=== PATIENT | male | born 1970 | race Caucasian/White ===

== ENCOUNTER 2018-08-06 08:07 | Outpatient (REF) | payer BC, SELFPAY ==
[2018-08-06 13:08] LABS: Cholesterol 230 mg/dL (50-200); HDL Cholesterol 36 mg/dL (40-60); LDL CHOLESTEROL 151 mg/dL (<100); Triglyceride 216 mg/dL (30-150)
== END 2018-08-06 08:27 ==
LOC: NCHCN 08:07
PROVIDERS: PCP Nurse Practitioner Family; Visit Provider Nurse Practitioner Family
DX: E78.5 Hyperlipidemia, unspecified (principal)
CPT/HCPCS: 80061; 83721

== ENCOUNTER 2018-09-22 10:57 | Emergency (ER) | payer OTHER, BC, SELFPAY ==
[2018-09-22 11:01] VITALS: BP 184/96; PULSE 62; RESP 20; TEMP 36.8; O2SAT 98
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
[2018-09-22] MEDS: Bacitracin 30 GM TUBE TP (11:12)
[2018-09-22] MEDS: oxyCODONE 5 mg/Acetaminophen 325 mg TAB 1 TAB PO (11:13)
== END 2018-09-22 12:04 | disposition home or self-care (01) ==
PROVIDERS: Emergency Provider Student in an Organized Health Care Education/Training Program; PCP Nurse Practitioner Family
DX: T21.11XA Burn of first degree of chest wall, initial encounter (principal); T20.17XA Burn of first degree of neck, initial encounter; W18.49XA Other slipping, tripping and stumbling without falling, initial encounter; X12.XXXA Contact with other hot fluids, initial encounter; X13.1XXA Other contact with steam and other hot vapors, initial encounter; I10 Essential (primary) hypertension
CPT/HCPCS: 16000

== ENCOUNTER 2018-09-30 14:13 | Outpatient (CLI) | payer BC, SELFPAY ==
--- NOTE | 2018-09-30 14:30 | DI.RAD_ITS ---
SYMPTOM/DIAGNOSIS: LT KNEE PAIN LEFT KNEE: Three views. No priors. The articular surfaces are well maintained. The bones are intact and normally mineralized. The soft tissues are unremarkable. IMPRESSION: Unremarkable left knee.
== END 2018-09-30 14:33 ==
PROVIDERS: PCP Nurse Practitioner Family; Visit Provider Student in an Organized Health Care Education/Training Program
DX: M25.562 Pain in left knee (principal)
CPT/HCPCS: 73562

== ENCOUNTER 2021-10-21 15:25 | Emergency (ER) | payer MEDICAID, SELFPAY ==
[2021-10-21 15:29] VITALS: BP 172/93; PULSE 80; RESP 18; TEMP 37.6; O2SAT 95
--- NOTE | 2021-10-21 15:45 | RT.EKG_ITS ---
APPROVED REPORT Exam: Resting ECG Reason for Exam: chest pain Patient Location: E HR:72 bpm ECG Measurements Heart Rate 72 AXIS RI 170 P 0 QRSd 89 QRS 12 QT 361 T 19 QTc 397 Conclusion Sinus rhythm...normal P axis, V-rate 60- 99
--- NOTE | 2021-10-21 15:45 | DI.RAD_ITS ---
Exam(s) XR CHEST 2V PA LATERAL EXAM: XR CHEST 2V PA LATERAL CLINICAL HISTORY: chest pain. TECHNIQUE: 2D digital imaging was performed. COMPARISON: CR PORTABLE CHEST ONE VIEW from 11/10/2014 FINDINGS: 2 views: Heart size is normal. The mediastinum is not widened. Right lung is clear. There is platelike atelectasis in the lingular segment of the left lung. No pl eural effusions. No pneumothorax. No pulmonary edema. IMPRESSION: There is subsegmental platelike atelectasis in the lingular segment of the left lung. No other pulmo nary findings. No pleural effusions. DATA REPOSITORY: RADIATION DOSE DELIVERED:
--- NOTE | 2021-10-21 15:56 | W.ED.GENAD ---
Discharge Plan Disposition Patient Disposition: HOME Condition: Stable Discharge Details Clinical Impression: Dental caries, Elevated TSH Primary Care Provider: Jennifer Quiroz ED Provider: Patricia Dorman Home Meds and New Rx's Prescriptions: New penicillin V potassium 500 mg tablet 500 mg PO QID 7 Days Qty: 28 0RF No Action ibuprofen 800 MG tablet 800 mg PO PRN PRN0RF naproxen sodium [Aleve] 220 MG capsule 220 mg PO BID 0RF nitroglycerin [Nitrostat] 0.4 MG tablet, sublingual 0.4 mg Sublingual Q5 MIN PRN X3 PRNQty: 30 0RF Discharge Instructions Instructions: Dental Caries (ED), Hypothyroidism (ED) Additional Instructions: Your thyroid stimulating hormone was slightly elevated today. This may indicate that you have hypothyroidism. Please discuss this with your primary care provider. Please take the antibiotic as directed. Take it with yogurt or probiotics. Please see a dentist. You are placed on a care management list, they should be contacting you to help you establish a PCP. Follow up with primary care provider in 3-5 days. Return to ED sooner if any worsening or concerns. Increase oral fluids. Please take Tylenol or Ibuprofen with food every 4-6 hours as needed for pain and swelling. Referrals: Jennifer Quiroz [Primary Care Provider] - 5 days Discharge Data Discharge Date/Time-TO BE ENTERED AT DEPARTURE: 10/21/21 17:33 Medical Decision Making <DANIELLA Dee - Last Filed: 10/24/21 09:09> Patient with the complaint and no PCP or history Given his complaint of intermittent chest discomfort, splinting, chills I did order blood work, chest x-ray, EKG, and diagnostic lab work If all the tests are negative I would consider discharging patient with a prescription for penicillin and a dental follow-up Elvin transferred to Patricia Dorman, nurse practitioner pending diagnostic blood work and disposition Medical Records Medical records reviewed: Yes I reviewed the patient's medical records. Lab Data Lab results reviewed: Yes I reviewed the patient's lab results. <Patricia Dorman - Last Filed: 10/21/21 17:24> Patient with the complaint and no PCP or history Given his complaint of intermittent chest discomfort, splinting, chills I did order blood work, chest x-ray, EKG, and diagnostic lab work If all the tests are negative I would consider discharging patient with a prescription for penicillin and a dental follow-up Elvin transferred to Patricia Dorman nurse practitioner pending diagnostic blood work and disposition 1615: SJ: Care assumed from provider (DANIELLA Dee Please see their initial HPI, PE, and documentation. Discussed patient details and case and pending workup and disposition. Patient is hemodynamically stable, and alert and oriented. At the time of signout labs imaging pending. 51-year-old male presents to the ER with chief complaint of mouth pain. He reports that recently he has been having some chills, numbness in his fingers and intermittent chest pains. He does not have a primary care provider. He reports that he used to be on sertraline but has not taken any medications for years. He is a daily smoker. He does endorse alcohol. CBC shows no leukocytosis, initial troponin within normal limits. EKG shows normal sinus rhythm. CMP shows no acute abnormality glucose is 119, TSH is elevated at 4.08 Free T4 is normal at 0.83. Discussed labs and follow-up care with patient patient was placed on a care management list as he reports he needs a new PCP. Patient was given penicillin 500 mg 4 times daily and was given dental resources. This text was generated using Ahandyhandation system, please disregard any oddities of phrase or misspellings. HPI <DANIELLA Dee - Last Filed: 10/24/21 09:09> General Date/Time Provider Initiated Documentation: 10/21/21 15:26. HPI Narrative: This 51-year-old gentleman presents for report of vague complaints including increased sweating, intermittent chills, intermittent chest pain over the course of the past several days. He states he feels out of it . He also reports paresthesias to his arms and legs. He states that they are not constant. He denies any current chest pain or shortness of breath. He states he had some chest pain earlier today approximately 8:00. He also has dental pain which is ongoing. He denies acute exacerbation at this time. He has not taken any medications today. He states he is having intermittent chills. He denies any urinary symptoms. He denies polyuria, polyphagia, polydipsia. He has had some increased fatigue. He denies any IV drug abuse. He uses marijuana and he drinks alcohol, he typically binge drinks when he does drink and denies any history of withdrawal. He denies 3 days ago. He states he does not drink daily. Denies any diarrhea, nausea, vomiting. Denies history of known coronary artery disease. He states that he is not seen a doctor in years . He states he does not take any medication. Related Data Home Medications Medication Instructions Recorded Confirmed ibuprofen 800 mg tablet 800 mg PO PRN PRN 05/01/13 10/21/21 naproxen sodium 220 mg capsule 220 mg PO BID 05/01/13 10/21/21 (Aleve) nitroglycerin 0.4 mg sublingual 0.4 mg SUBLINGUAL Q5 MIN PRN X3 11/11/14 10/21/21 tablet (Nitrostat) PRN #30 tab penicillin V potassium 500 mg 500 mg PO QID 7 Days #28 tab 10/21/21 tablet Previous Rx's Medication Instructions Recorded nitroglycerin 0.4 mg sublingual 0.4 mg SUBLINGUAL Q5 MIN PRN X3 11/11/14 tablet (Nitrostat) PRN #30 tab penicillin V potassium 500 mg 500 mg PO QID 7 Days #28 tab 10/21/21 tablet Allergies Allergy/AdvReac Type Severity Reaction Status Date / Time No Known Allergies Allergy Unverified 10/21/21 15:32 General Stated Complaint: DentalOral SALVADOR: 4 Review of Systems <DANIELLA Dee - Last Filed: 10/24/21 09:09> All systems reviewed & are unremarkable except as noted in HPI and below PFSH <DANIELLA Dee - Last Filed: 10/24/21 09:09> All Active Problems (Updated 10/21/21 @ 17:10 by Patricia Dorman) Dental caries (Acute) Elevated TSH (Acute) Knee pain (Acute) Social History Smoking/Tobacco Use Status: Current every day Tobacco Type: cigarettes Smoking risk assessment performed?: Yes Alcohol Intake: current Alcohol Intake frequency: 3 or more drinks per day Alcohol type: hard liquor Drug use: Daily Substance use type: marijuana Do you feel safe at home: Yes Do you feel safe in your relationship?: Yes Exam <DANIELLA Dee - Last Filed: 10/24/21 09:09> Const General: cooperative, comfortable and no acute distress HENMT Other: Widespread dental decay, no obvious evidence of deep space infection, no trismus Eyes Other: Injected conjunctiva Resp Effort & Inspection: normal respiratory effort Auscultation: clear to auscultation bilaterally Cardio Rate: regular rate Rhythm: regular rhythm Skin General skin exam: no rashes or lesions noted Other: Specifically no diaphoresis Neuro General: patient alert and patient oriented x3 Cranial Nerves: CN's II-XI intact bilaterally and tongue midline Cognition: normal cognition Speech: speech normal Gait: normal gait Course <DANIELLA Dee - Last Filed: 10/24/21 09:09> Vital Signs Vital signs: Vital Signs Temperature 37.6 C 10/21/21 15:29 Pulse 80 10/21/21 15:29 Respiratory Rate 18 10/21/21 15:29 Blood Pressure 172/93 H 10/21/21 15:29 Pulse Oximetry 95 10/21/21 15:29 Temperature 37.6 C 10/21/21 15:29 Temperature Source Oral 10/21/21 15:29 Pulse 80 10/21/21 15:29 Respiratory Rate 18 10/21/21 15:29 Respiratory Effort Non-Labored 10/21/21 15:33 Blood Pressure 172/93 H 10/21/21 15:29 Blood Pressure Position Sitting 10/21/21 15:29 Pulse Oximetry 95 10/21/21 15:29 Oxygen Delivery Method Room Air 10/21/21 15:29 Oxygen Flow Rate 0 10/21/21 15:29 Pain Level 0 10/21/21 15:29 Sign Out <DANIELLA Dee - Last Filed: 10/24/21 09:09> Sign Out Data: Sign Out Comment: pending labs, ekg, cxr, and dispo Last updated by Yovana Renee PA at 10/21/21 16:03 PAWSS <DANIELLA Dee - Last Filed: 10/24/21 09:09> Have you Been Recently Intoxicated or Drunk Within the Last 30 days?: Yes Have you Ever Experienced Previous Episodes of Alcohol Withdrawal?: No Have you ever Experienced Withdrawal Seizures?: No Have you ever Experienced Delirium Tremens(DT)s?: No Have you ever undergone Alcohol Rehabilitation Treatment (i.e, inpt ot outpatient treatment programs)?: Yes Have you ever Experienced Blackouts?: No Have you ever Combined Alcohol with other Downers within the last 90 days?: No Have you ever Combined Alcohol with any other Substance of Abuse during the last 90 days?: Yes Positive Blood Alcohol level on Presentation? [PCS.BAL]: No Evidence of Increased Autonomic Activity (i.e. HR>120, tremor, sweating, agitation, nausea)?: No Result: 4 <Patricia Dorman - Last Filed: 10/21/21 17:24> Result: 4
[2021-10-21 16:15] LABS: Abs Immature Grans 0.02 10^3/uL (0.0-0.06); Absolute Basophil Count 0.05 10^3/uL (0.0-0.2); Absolute Lymphocyte Count 1.29 10^3/uL (1.2-3.4); Absolute Monocyte Count 0.84 10^3/uL (0.1-0.8); Absolute Neutrophil Count 4.47 10^3/uL (1.2-6.7); Basophils % 0.7; Eosinophils % 1.5; HGB 16.5 g/dL (13.5-17.5); Immature Grans % 0.3; Lymphocytes % 19.1; MCHC 35.1 % (32.0-36.0); MCV 88.2 fL (80-95); MPV 8.5 fL (8.0-11.0); Monocytes % 12.4; Nucleated RBC 0 %; Platelet Count 208 10^3/uL (130-400); RBC 5.33 10^6/uL (4.36-5.78); RDW 12.5 % (11.8-14.1); RDW-SD 40.1 fL; WBC 6.77 10^3/uL (4.4-10.8)
--- NOTE | 2021-10-21 16:24 | DI.VRAD_ITS ---
PROCEDURE INFORMATION: Exam: XR Chest Exam date and time: 10/21/2021 3:56 PM Age: 51 years old Clinical indication: Other: Chest pain TECHNIQUE: Imaging protocol: XR of the chest. Views: 2 views. COMPARISON: CR PORTABLE CHEST ONE VIEW 11/10/2014 12:29 PM FINDINGS: Lungs: The lungs are well aerated without consolidation. Linear opacity is seen within the left lower lung on frontal view likely representing scarring versus discoid atelectasis. Pleural spaces: No pleural effusion or pneumothorax. Heart/Mediastinum: Essentially stable with normal heart size, left aortic arch and off centered trachea. Bones/joints: Unremarkable for patient's stated age. IMPRESSION: No acute cardiopulmonary finding. Dictated and Authenticated by: Brian Palafox MD. Ordering:DOV Yen MD
[2021-10-21 16:32] LABS: Troponin I < 50 ng/L (<or=60)
[2021-10-21 16:39] LABS: ALT 61 U/L (16-63); AST 36 U/L (15-37); Albumin 3.8 g/dL (3.4-5.0); Alkaline Phosphatase 111 U/L (46-116); Anion Gap 12.6 mmol/L (3-11); BUN 12 mg/dL (7-18); Bilirubin, Total 0.7 mg/dL (0.2-1.0); CO2 25.4 mmol/L (21.0-32.0); CREATININE 0.9 mg/dL (0.70-1.30); Calcium 9.2 mg/dL (8.5-10.1); Chloride 104 mmol/L (98-107); Glucose 119 mg/dL (74-106); Lipase 64 U/L (73-393); Potassium 3.5 mmol/L (3.5-5.1); Sodium 142 mmol/L (136-145); TSH (W/Ref FT4) 4.08 uIU/mL (0.36-3.74)
[2021-10-21] MEDS: Penicillin V POTASSIUM 500 MG TAB PO (16:46)
[2021-10-21 16:58] LABS: FREE T4 0.83 ng/dL (0.76-1.46)
--- NOTE | 2021-10-21 17:01 | NUR.NOTE ---
Patricia requested a PCP establishment for this patient. I have placed a request on the care management form. DONNELL
[2021-10-21 17:25] VITALS: BP 157/102; PULSE 72; RESP 18; O2SAT 97
[2021-10-21] MEDS: Penicillin V POTASSIUM 500 MG TAB, 4 TABS/BTL PO (17:25)
== END 2021-10-21 17:33 | disposition home or self-care (01) ==
PROVIDERS: Physician Assistant; Emergency Provider Registered Nurse Emergency; PCP Nurse Practitioner Family
DX: K02.9 Dental caries, unspecified (principal); R94.6 Abnormal results of thyroid function studies; R07.9 Chest pain, unspecified; R68.83 Chills (without fever)
CPT/HCPCS: 36415; 80053; 83690; 93005; 99284; 71046; 84439; 84443; 84484; 85025; 93010